=== PATIENT | female | born 1955 | race Caucasian/White ===

== ENCOUNTER 2016-08-28 11:15 | Outpatient (RCR) | payer OTHER ==
[~2016-08-28 11:15] MED LIST: CALTRATE-600 W600 MG PO; FLAGYL500 MG PO; GLUCOSAMINE/CHONDROI; LEVAQUIN 750MG750 M1 PO; NORCO 325 MG-51 TAB PO; PRILOSEC 20MG20 MG PO; VYTORIN; omega 3
== END 2016-09-01 | disposition still patient (30) ==
LOC: WSST
DX: F09 Unspecified mental disorder due to known physiological condition (principal)

== ENCOUNTER 2016-11-27 11:15 | Outpatient (RCR) | payer OTHER | END 2016-12-01 | disposition home or self-care (01) | LOC: WSST | DX: R41.89 Other symptoms and signs involving cognitive functions and awareness (principal) ==

== ENCOUNTER 2017-02-26 11:15 | Outpatient (RCR) | payer OTHER | END 2017-03-02 | disposition home or self-care (01) | LOC: WSST | DX: R48.9 Unspecified symbolic dysfunctions (principal); R41.3 Other amnesia ==

== ENCOUNTER 2017-05-28 11:15 | Outpatient (RCR) | payer OTHER | END 2017-06-01 | disposition home or self-care (01) | LOC: WSST | DX: R48.9 Unspecified symbolic dysfunctions (principal); R41.3 Other amnesia; F03.90 Unspecified dementia, unspecified severity, without behavioral disturbance, psychotic disturbance, mood disturbance, and anxiety ==

== ENCOUNTER 2017-08-06 11:15 | Outpatient (RCR) | payer OTHER | END 2017-08-31 | disposition home or self-care (01) | LOC: WSST | DX: F03.90 Unspecified dementia, unspecified severity, without behavioral disturbance, psychotic disturbance, mood disturbance, and anxiety (principal); R48.8 Other symbolic dysfunctions ==